=== PATIENT | female | born 1950 | race Caucasian/White ===

== ENCOUNTER 2019-02-06 17:15 | Observation (INO) | payer OTHER ==
[~2019-02-06] VITALS: Ht 162.6 cm; Wt 6.0 kg
[~2019-02-06 17:15] MED LIST: ALBU90OI6 INH; ALBU90OI61 INH; Aspirin EC81 MG PO; CARV6.25 PO; CLON1 PO; CORLANOR5 MG PO; FLUSAL2505 INH; FURO20 PO; Hydrocodone-Ap1 EA23 PO; LISI5 PO; Lisinopril2.5 MG PO; METPRE4DP PO; SERT100 PO; SPIR25 PO
[2019-02-06] MEDS ORDERED: LOSA25 PO (18:31)
[2019-02-06] MEDS ORDERED: LEVSOD50 PO (18:32)
[2019-02-06] MEDS ORDERED: ATOR20 PO (18:32)
[2019-02-06] MEDS ORDERED: SPIRIVA RESPIMAT4 GM INH (18:33)
[2019-02-06] MEDS ORDERED: BUDE6HFA INH (18:33)
[2019-02-06 19:29] LABS: BASOPHILS ABSOLUTE AUTO 0.03 K/mm3 (0.00-0.23); BASOPHILS PERCENT AUTO 0 % (0-2); EOSINOPHILS ABSOLUTE AUTO 0.04 K/mm3 (0.00-0.68); EOSINOPHILS PERCENT AUTO 1 % (0-6); Hematocrit 38.7 % (33.0-51.0); IMMATURE GRAN ABSOLUTE AUTO 0.04 K/mm3 (0.00-0.10); IMMATURE GRAN PERCENT AUTO 1 % (0-1); LYMPHOCYTES ABSOLUTE AUTO 0.99 K/mm3 (0.84-5.20); LYMPHOCYTES PERCENT AUTO 11 % (21-46); MONOCYTES PERCENT AUTO 6 % (4-13); Mean Corpuscular HGB 25.4 pg (26.0-34.0); Mean Corpuscular Volume 82 fL (80-100); NEUTROPHILS ABSOLUTE AUTO 7.08 K/mm3 (1.96-9.15); NEUTROPHILS PERCENT AUTO 82 % (41-73); RDW Coefficient Variation 14.3 % (11.7-14.2); RDW Standard Deviation 41.8 fL (35.1-46.3); Red Blood Cell Count 4.73 M/mm3 (3.80-5.20); White Blood Cell Count 8.68 K/mm3 (4.00-11.30)
[2019-02-06 19:30] LABS: Mean Platelet Volume 10.6 fL (9.1-12.4); Platelet Count 163 K/mm3 (150-400)
[2019-02-06 19:43] LABS: Alanine Aminotransfer (ALT/SGP 31 U/L (12-78); Albumin, Blood 3.6 g/dL (3.4-5.0); Albumin/Globulin Ratio 1.1 (0.8-1.8); Alk Phos 70 U/L (50-136); Anion Gap 4 mmol/L (6-16); Aspartate Aminotrans (AST/SGOT 28 U/L (12-37); Bilirubin, Total 0.4 mg/dL (0.1-1.0); Blood Urea Nitrogen 15 mg/dL (8-24); Bun/Creatinine Ratio 23.5 (12.0-20.0); CO2, Blood 30 mmol/L (21-32); Calcium, Blood 8.7 mg/dL (8.5-10.1); Chloride, Blood 102 mmol/L (98-108); Creatinine, Blood 0.64 mg/dL (0.40-1.00); Globulin, Blood 3.2 g/dL (2.2-4.0); Glomerular Filtration Rate >60 (60-); Glucose, Blood 135 mg/dL (70-99); Potassium, Blood 3.8 mmol/L (3.5-5.5); Sodium, Blood 136 mmol/L (136-145); Total Protein, Blood 6.8 g/dL (6.4-8.2)
--- NOTE | 2019-02-07 02:23 | NUR ---
ASSUMED CARE OF PATIENT AT APPROXIMATELY 2235 FROM ED GALILEO Pedersen PATIENT ARRIVES TO UNIT VIA STRETCHER; TRANSFER FROM ED TO PCU STRETCHER VIA SLIDE SHEET AND FOUR STAFF ASSIST D/T RIGHT LEG PAIN. PATIENT REPORTS PAIN IN RIGHT GROIN AND LEG UP TO 7/10; ACHE; REQUESTS PRN PAIN MEDICATION. PAIN DROPPED TO 4/10 WITHIN MINUTES AFTER IV PAIN MEDICATION. PATIENT REPORTS PAIN HAS NOT BEEN A ZERO SINCE FALL YESTERDAY. PATIENT DENIES TINGLING BUT REPORTS OCCASIONAL NUMBNESS IN FEET AFTER SHE HAD CHEMO FOR BREAST CX. PATIENT DENIES NAUSEA. SURGICAL NO TELE STATUS; OXYGEN SATURATION ABOVE 90% ON 2LPM VIA NC; REPORTS WEARS THIS OXYGEN AT BASELINE PRN WHEN AIR IS WET OR IF SHE FEELS SOB. ADMISSION COMPLETE; PIV S/L. ORTHO CONSULT CALLED IN; DR. RAMSEY TO SEE PATIENT IN AM; PER ER REPORT NO SURGICAL INTERVENTION; PAIN MANAGEMENT AND AMBULATION. PATIENT CURERNTLY SLEEPING IN BED; CALL LIGHT IN REACH; BED IN LOWEST POSISTION; WILL CONTINUE TO MONITOR AND ASSESS UNTIL END OF SHIFT.
[2019-02-07 04:23] LABS: Anion Gap 6 mmol/L (6-16); Blood Urea Nitrogen 13 mg/dL (8-24); CO2, Blood 30 mmol/L (21-32); Calcium, Blood 8.4 mg/dL (8.5-10.1); Chloride, Blood 102 mmol/L (98-108); Creatinine, Blood 0.77 mg/dL (0.40-1.00); Glomerular Filtration Rate >60 (60-); Glucose, Blood 109 mg/dL (70-99); Sodium, Blood 138 mmol/L (136-145)
--- NOTE | 2019-02-07 06:52 | NUR ---
PATIENT SLEPT ABOUT FIVE HOURS LAST NIGHT. NO ACUTE CHANGES TO REPORT. WILL CONTINUE TO MONITOR AND ASSESS UNTIL END OF SHIFT.
--- NOTE | 2019-02-07 09:05 | NUR ---
report rec'd from gay rn, who stayed over into day shift. gay rn to provide pain med per pt request. pt resting in bed. pt wants to discuss lovenox use with provider before consenting to injection. will also address pain med change to po for better coverage. cont to monitor.
--- NOTE | 2019-02-07 09:32 | NUR ---
PATIENT MEDICATED PER EMAR WITH IV PAIN MEDICATION; REPORTS PAIN WENT FROM 6 TO A 0; REFUSED LOVENOX THIS MORNING; PATIENT WANTS TO DISCUSS WITH DOCTOR THIS MORNING ALONG WITH PO PAIN MEDICATION; REPORTS UNSURE IF TYLENOL HELPED. VSS. PT WORKED WITH PATIENT; AMBULATED TO BED; UP IN CHAIR FOR MEALS; NO CHANGES FROM SHIFT ASSESSMENT. REPORT GIVEN TO DONALD Marie RN.
--- NOTE | 2019-02-07 17:51 | NUR ---
DC'D TO [facility]. WHEEL CHAIR TRANSPORT PROVIDED BY [employer]. REPORT CALLED TO JANNA GURROLA. PT WORKED VERY WELL WITH PT/OT, NEEDING MINIMAL AMOUNT OF PAIN MEDICATION. PT DC'D IN STABLE CONDITION.
[2019-02-08] MEDS ORDERED: ACET325 PO (09:52)
[2019-02-08] MEDS ORDERED: Senna Plus Tab1 EACH PO (09:53)
[2019-02-08] MEDS ORDERED: Hydrocodone-Ap1 EA23 PO (09:55)
[2019-02-08] MEDS ORDERED: ALBU3IS INH (09:56)
[2019-02-08] MEDS ORDERED: MIRALAX17 GM PO (09:57)
== END 2019-02-07 17:40 | disposition home or self-care (01) ==
LOC: ER 17:15 → PCU 17:16 → ER 21:20 → PCU 22:40
PROVIDERS: Emergency Medicine; Nurse Practitioner Acute Care; ADMIT Hospitalist
DX: S32.591A Other specified fracture of right pubis, initial encounter for closed fracture (principal); E03.9 Hypothyroidism, unspecified; I11.0 Hypertensive heart disease with heart failure; I50.22 Chronic systolic (congestive) heart failure; J44.9 Chronic obstructive pulmonary disease, unspecified; F32.9 Major depressive disorder, single episode, unspecified; K59.00 Constipation, unspecified; Z87.891 Personal history of nicotine dependence; Z79.01 Long term (current) use of anticoagulants; Z79.899 Other long term (current) drug therapy; W01.0XXA Fall on same level from slipping, tripping and stumbling without subsequent striking against object, initial encounter
CPT/HCPCS: 36415; 73502; 80048; 80053; 85025; 93005; 93010; 94640; 94760; 96374; 96376; 97162; 97166; 97530; 97535; 99285-25; G0378; J1650; J3010

== ENCOUNTER 2019-08-02 08:50 | Day surgery (SDC) | payer OTHER ==
[~2019-08-02] VITALS: Ht 162.6 cm; Wt 59.4 kg
[~2019-08-02 08:50] MED LIST changes: +ACET325 PO; +ALBU3IS INH; +ATOR20 PO; +BUDE6HFA INH; +LEVSOD50 PO; +LOSA25 PO; +MIRALAX17 GM PO; +OXYC5 PO; +SPIRIVA RESPIMAT4 GM INH; +Senna Plus Tab1 EACH PO
--- NOTE | 2019-08-02 11:07 | NUR ---
08/02/19 2480 Whit Arthur PT. WAS PLACED ON HER BACK FOR PART OF PROCEDURE.
== END 2019-08-02 11:42 | disposition home or self-care (01) ==
LOC: ORSCSDS 08:50
PROVIDERS: Surgery
PROC: 0DBK8ZX Excision of Ascending Colon, Via Natural or Artificial Opening Endoscopic, Diagnostic (ICD-10-PCS; principal; 2019-08-02 10:00)
DX: K62.5 Hemorrhage of anus and rectum (principal); D12.2 Benign neoplasm of ascending colon; Z86.010 Personal history of colon polyps; K64.2 Third degree hemorrhoids; I10 Essential (primary) hypertension; E03.9 Hypothyroidism, unspecified; J44.9 Chronic obstructive pulmonary disease, unspecified; F17.210 Nicotine dependence, cigarettes, uncomplicated; I25.10 Atherosclerotic heart disease of native coronary artery without angina pectoris; Z79.899 Other long term (current) drug therapy
CPT/HCPCS: 88305; J2250; J2704; J7120

== ENCOUNTER 2019-08-29 06:35 | Day surgery (SDC) | payer OTHER ==
[~2019-08-29] VITALS: Ht 162.6 cm; Wt 59.8 kg
--- NOTE | 2019-08-29 08:10 | NUR ---
Ambulatory in Day Surgery History, Chart, Medications and Allergies reviewed before start of procedure.LUNGS WITH EXPIRATORY WZ THROUGH OUT. PT STATES THAT SHE DID A DUO NEB AND HER 2 INHALERS THIS AM @ 0600. Patient confirms NPO status and agrees with scheduled surgery. Patient States Post-Procedure ride home has been arranged.
--- NOTE | 2019-08-29 08:20 | NUR ---
PT BELKOFSKI. SHE STATES THAT SHE THOUGHT THAT I WAS ASKING IF SHE TOOK HER ENEMA THIS AM. SHE DID NOT DO A DUO NEB AT 0600 THIS AM, BUT SHE DID USE BOTH OF HER INHALERS. DUO NEB GIVEN PER ORDERS.
--- NOTE | 2019-08-29 12:07 | NUR ---
Discharge instructions reviewed with patient. Patient verbalizes understanding. Copy given to patient to take home. Gauze given to patient to take home. Belongings gathered, with family. Discharged via wheelchair to private car for ride home.
== END 2019-08-29 23:16 | disposition home or self-care (01) ==
LOC: ORSCMMR 06:35 → ORD 07:30 → ORSCMMR 23:16
PROVIDERS: Surgery
PROC: 06BY0ZC Excision of Hemorrhoidal Plexus, Open Approach (ICD-10-PCS; principal; 2019-08-29 08:45)
DX: K64.8 Other hemorrhoids (principal); K64.4 Residual hemorrhoidal skin tags; K62.82 Dysplasia of anus; J44.9 Chronic obstructive pulmonary disease, unspecified; I10 Essential (primary) hypertension; E78.00 Pure hypercholesterolemia, unspecified; E03.9 Hypothyroidism, unspecified; F32.9 Major depressive disorder, single episode, unspecified; Z79.899 Other long term (current) drug therapy; Z87.891 Personal history of nicotine dependence
CPT/HCPCS: 88304; J0694; J1100; J1885; J2250; J2405; J2704; J2710; J3010; J7120

== ENCOUNTER 2020-01-25 09:49 | Inpatient (IN) | payer OTHER ==
[~2020-01-25] VITALS: Ht 162.6 cm; Wt 61.0 kg
[~2020-01-25 09:49] MED LIST changes: -ALBU3IS INH; +CARV3.125 PO; +Duoneb 2.5-0.5 M3 ML NEB
[2020-01-25 10:24] LABS: PCO2 Arterial 87.6 mmHg (35-45); PO2 Arterial 76.5 mmHg (80-100)
[2020-01-25 10:28] LABS: BASOPHILS ABSOLUTE AUTO 0.02 K/mm3 (0.00-0.23); BASOPHILS PERCENT AUTO 0 % (0-2); EOSINOPHILS ABSOLUTE AUTO 0.01 K/mm3 (0.00-0.68); EOSINOPHILS PERCENT AUTO 0 % (0-6); Hematocrit 47.7 % (33.0-51.0); Hemoglobin 13.9 g/dL (11.5-16.0); IMMATURE GRAN ABSOLUTE AUTO 0.07 K/mm3 (0.00-0.10); IMMATURE GRAN PERCENT AUTO 1 % (0-1); LYMPHOCYTES ABSOLUTE AUTO 0.95 K/mm3 (0.84-5.20); LYMPHOCYTES PERCENT AUTO 10 % (21-46); MONOCYTES ABSOLUTE AUTO 0.73 K/mm3 (0.16-1.47); MONOCYTES PERCENT AUTO 8 % (4-13); Mean Corpuscular HGB 25.3 pg (26.0-34.0); Mean Corpuscular HGB Conc 29.1 g/dL (31.5-36.5); Mean Corpuscular Volume 87 fL (80-100); Mean Platelet Volume 10.6 fL (9.1-12.4); NEUTROPHILS ABSOLUTE AUTO 7.41 K/mm3 (1.96-9.15); NEUTROPHILS PERCENT AUTO 81 % (41-73); Platelet Count 243 K/mm3 (150-400); RDW Coefficient Variation 13.6 % (11.7-14.2); RDW Standard Deviation 43.9 fL (35.1-46.3); Red Blood Cell Count 5.49 M/mm3 (3.80-5.20); White Blood Cell Count 9.19 K/mm3 (4.00-11.30)
[2020-01-25 10:51] LABS: Alanine Aminotransfer (ALT/SGP 30 U/L (12-78); Albumin, Blood 3.2 g/dL (3.4-5.0); Albumin/Globulin Ratio 0.7 (0.8-1.8); Alk Phos 68 U/L (50-136); Anion Gap 5 mmol/L (6-16); Aspartate Aminotrans (AST/SGOT 37 U/L (12-37); Bilirubin, Total 0.5 mg/dL (0.1-1.0); Blood Urea Nitrogen 18 mg/dL (8-24); Bun/Creatinine Ratio 26.4 (12.0-20.0); CO2, Blood 30 mmol/L (21-32); Calcium, Blood 9.2 mg/dL (8.5-10.1); Chloride, Blood 99 mmol/L (98-108); Creatinine, Blood 0.68 mg/dL (0.40-1.00); Globulin, Blood 4.5 g/dL (2.2-4.0); Glomerular Filtration Rate >60 (60-); Glucose, Blood 227 mg/dL (70-99); Potassium, Blood 4.4 mmol/L (3.5-5.5); Sodium, Blood 134 mmol/L (136-145); Total Protein, Blood 7.7 g/dL (6.4-8.2)
[2020-01-25 11:56] LABS: Troponin I 0.478 ng/mL (0.000-0.040)
[2020-01-25] MEDS ORDERED: ROSU10TA PO (12:19)
[2020-01-25] MEDS ORDERED: CITA20 PO (12:20)
[2020-01-25 15:26] LABS: PCO2 Arterial 65.2 mmHg (35-45); PO2 Arterial 63.4 mmHg (80-100); pH Blood Arterial 7.35 (7.35-7.45)
[2020-01-25 16:08] LABS: Source, Urine Catheter
[2020-01-25 16:11] LABS: Appearance, Urine Clear (Clear); Bilirubin, Urine Neg (Neg); Blood, Urine Neg (Neg); Color, Urine Yellow (P-Yellow); Glucose Qualitative, Urine Neg (Neg); Ketones, Urine Neg (Neg); Leukocyte Esterase, Urine Neg (Neg); Nitrite, Urine Neg (Neg); Protein, Urine Neg (Neg); Urobilinogen, Urine NORM (Normal)
[2020-01-25 17:40] LABS: Adenovirus Not Detected (NOT DETECT); Bordetella pertussis Not Detected (NOT DETECT); Chlamydophila pneumoniae Not Detected (NOT DETECT); Coronavirus 229E Not Detected (NOT DETECT); Coronavirus HKU1 Not Detected (NOT DETECT); Coronavirus NL63 Not Detected (NOT DETECT); Coronavirus OC43 Not Detected (NOT DETECT); Human Metapneumovirus Detected (NOT DETECT); Human Rhinovirus/Enterovirus Not Detected (NOT DETECT); Influenza A Not Detected (NOT DETECT); Influenza A/2009-H1 Not Detected (NOT DETECT); Influenza A/H1 Not Detected (NOT DETECT); Influenza A/H3 Not Detected (NOT DETECT); Influenza B Not Detected (NOT DETECT); Mycoplasma pneumoniae Not Detected (NOT DETECT); Parainfluenza Virus 1 Not Detected (NOT DETECT); Parainfluenza Virus 2 Not Detected (NOT DETECT); Parainfluenza Virus 3 Not Detected (NOT DETECT); Parainfluenza Virus 4 Not Detected (NOT DETECT); Respiratory Syncytial Virus Not Detected (NOT DETECT)
--- NOTE | 2020-01-25 18:37 | NUR ---
PT WITH BP 86/55, HR 88; REPEAT READING WAS 83/57, HR 80. PT SLEEPING, BUT AROUSES TO SPEECH AND IS ORIENTED UPON AWAKENING. NOTIFIED DR. PRADO TO SEE IF SHE WANTED IVF SINCE PT NPO. SINCE PT IS BEING DIURESED AND MAP = 65, NO NEW ORDERS AT THIS TIME, BUT PLACED ORDER TO NOTIFY PROVIDER IF MAP < 65.
--- NOTE | 2020-01-25 18:51 | NUR ---
SHIFT SUMMARY: ASSUMED CARE OF PT UPON HER ARRIVAL FROM ED AT 1440. AROUSES TO SPEECH, IS ORIENTED. ABLE TO TURN SELF IN BED. LUNG SOUNDS QUITE DIMINISHED THROUGHOUT, TIGHT, POOR AIR MOVEMENT. ON BIPAP 14/8, 35% FIO2, SATS 92-94%, TOLERATING. IS V PACED, OCCASIONAL PVC'S. DENIES PAIN. FARR DRAINING CLEAR YELLOW URINE, UA DID NOT INDICATE NEED FOR CULTURE. RESP PANEL PCR + FOR METAPNEUMOVIRUS. PLAN IS FOR NEBULIZERS AND STEROIDS. PALLIATIVE CARE CONSULT PENDING, WILL WAIT UNTIL SPOUSE IS PRESENT.
--- NOTE | 2020-01-25 20:00 | NUR ---
ASSUMPTION OF CARE: PT AWAKENS TO VERBAL STIMULI AND IS ABLE TO ANSWER QUESTIONS. HR IS IN THE 80S. SBP IN THE 100S. V PACED AND IS HAVING OCC PVCS. LUNG SOUNDS ARE WHEEZY/COARSE AND DIM IN BASES. ON BIPAP. SETTINGS 14/8/35%. SPO2 >90%. PT HAS FARR IN PLACE DRAINING TO GRAVITY. 18G IN RAC; 20G IN R HAND. BOTH PATENT AND SL. WILL CONTINUE TO MONITOR
[2020-01-25] MEDS ORDERED: INCRUSE ELLI62.5 MCG INH (23:49)
[2020-01-25] MEDS ORDERED: PULMICORT0.5 MG/2 M NEB (23:50)
--- NOTE | 2020-01-25 23:52 | NUR ---
PT WHEEZY AND TIGHT. COUGHING. STATES SHE FEELS LIKE SHE NEEDS A BREATHING TX. RT AT BEDSIDE. FIO2 UP TO 40%
[2020-01-26 04:20] LABS: BASOPHILS ABSOLUTE AUTO 0.01 K/mm3 (0.00-0.23); BASOPHILS PERCENT AUTO 0 % (0-2); EOSINOPHILS PERCENT AUTO 0 % (0-6); Hematocrit 42.7 % (33.0-51.0); Hemoglobin 12.7 g/dL (11.5-16.0); Mean Corpuscular HGB 25.5 pg (26.0-34.0); Mean Corpuscular HGB Conc 29.7 g/dL (31.5-36.5); Mean Corpuscular Volume 86 fL (80-100); Mean Platelet Volume 10.4 fL (9.1-12.4); Platelet Count 164 K/mm3 (150-400); RDW Coefficient Variation 13.6 % (11.7-14.2); RDW Standard Deviation 42.8 fL (35.1-46.3); Red Blood Cell Count 4.99 M/mm3 (3.80-5.20); White Blood Cell Count 4.37 K/mm3 (4.00-11.30)
[2020-01-26 04:25] LABS: IMMATURE GRAN ABSOLUTE AUTO 0.02 K/mm3 (0.00-0.10); IMMATURE GRAN PERCENT AUTO 1 % (0-1); LYMPHOCYTES PERCENT AUTO 18 % (21-46); MONOCYTES ABSOLUTE AUTO 0.24 K/mm3 (0.16-1.47); MONOCYTES PERCENT AUTO 6 % (4-13); NEUTROPHILS PERCENT AUTO 76 % (41-73)
[2020-01-26 04:39] LABS: Alanine Aminotransfer (ALT/SGP 26 U/L (12-78); Albumin, Blood 2.9 g/dL (3.4-5.0); Albumin/Globulin Ratio 0.7 (0.8-1.8); Alk Phos 36 U/L (50-136); Anion Gap 4 mmol/L (6-16); Aspartate Aminotrans (AST/SGOT 28 U/L (12-37); Bilirubin, Total 0.3 mg/dL (0.1-1.0); Blood Urea Nitrogen 30 mg/dL (8-24); Bun/Creatinine Ratio 34.9 (12.0-20.0); CO2, Blood 36 mmol/L (21-32); Calcium, Blood 9.2 mg/dL (8.5-10.1); Chloride, Blood 100 mmol/L (98-108); Creatinine, Blood 0.86 mg/dL (0.40-1.00); Globulin, Blood 3.9 g/dL (2.2-4.0); Glomerular Filtration Rate >60 (60-); Glucose, Blood 145 mg/dL (70-99); Potassium, Blood 4.5 mmol/L (3.5-5.5); Sodium, Blood 140 mmol/L (136-145); Total Protein, Blood 6.8 g/dL (6.4-8.2)
--- NOTE | 2020-01-26 05:39 | NUR ---
PT ABLE TO TOLERATE SMALL BREAKS OFF BIPAP. SHE WAS ABLE TO TAKE PO MEDICATIONS, WASH FACE, AND SWAB OWN MOUTH PRIOR TO DE SAT <90%. ONCE BIPAP WAS PLACED BACK ON SHE RECOVERED QUICKLY WITH SPO2 >90%.
--- NOTE | 2020-01-26 05:50 | NUR ---
SHIFT SUMMARY: NO ACUTE CHANGES T/O SHIFT. PT SLEPT MOST OF NIGHT. WAS ABLE TO TOLERATE SHORT BREAKS OFF BIPAP. SETTINGS REMAIN 18/4/40%. PT IS ABLE TO REPOSITION SELF WHEN NECESSARY. RAC AND R HAND IVS PATENT AND SL. PT IS DUAL PACED AND CONTINUED TO THROW OCC PVCS THROUGHOUT THE NIGHT. FARR IN PLACE DRAINING SMALL AMOUNTS OF YELLOW URINE. SKIN REMAINS C/D/I. CALL LIGHT IN REACH. WILL PASS REPORT TO ONCOMING RN
--- NOTE | 2020-01-26 09:00 | NUR ---
pt laying in bed on bipap, spouce in room, she is awake, denies complaints, states she is feeling some better, is a home o2 user at 2 liters, RT in room will give a break and place on 4 liters per RT, she is tolerating well, gave po meds, she swallows without diff, lungs are dim, tight and occ wheezing, resp even and mildly labored, no cough noted, hrr, monitor shows paced rhythm, no edema noted, ppp+2, cap refill <3sec, vs stable, afebrile, iv sites are clear and patent, btx4, abd flat soft nontender, voids via lombardo draining clear yellow urine, skin c/w/d, emiliana dominguez, call light in reach.
--- NOTE | 2020-01-26 12:28 | NUR ---
pt resting in bed, lots of family in room, wanted to come off bipap again, but RT would like her to stay on for a while due to her work of breathing. she is doing ok, call light in reach.
--- NOTE | 2020-01-26 14:29 | NUR ---
PT OFF BIPAP FOR A BREAK, REPOSITIONED HER IN BED. SHE IS USING HER TABLET, DR. STARK IN TO SEE HER, SHE SAID SHE CAN BE CHANGED TO PCU WITH TELE. PT CALL LIGHT IN REACH.
--- NOTE | 2020-01-26 18:28 | NUR ---
pt has had an uneventful day, she has been on and off bipap, states she feels good and has no complaints. wants a breathing tx when she is finished eating and will put her back on bipap at that time. is maintaining 90-94% on 4 liters, no further changes this shift, call light in reach.
--- NOTE | 2020-01-26 20:14 | NUR ---
PT RESTING QUIETLY AT THIS TIME, STATES THAT SHE IS READY FOR BIPAP TO BE PLACED AND TO GO TO SLEEP ALTHOUGH SHE DOES INQUIRE REGARDING ANXIETY MEDICATION. HS LIPITOR AND ATIVAN ADMIN, RT AT BEDSIDE FOR UDN. PT IS SPEAKING IN FULL SENTENCES, MILD INCREASED WORK OF BREATHING IS NOTED WITH INCREASE IN ACTIVITY, PT IS ABLE TO SIT UP AWAY FROM BED WITH MINIMAL ASSIST AND MAINTAINS SATURATIONS AT THIS TIME, RESP RATE HIGH TEENS LOW 20S, SATS ARE LOW 90S, LUNGS DIM THROUGHOUT, LITTLE AIR MOVEMENT AUSCULTATED MID TO LOWER BILAT. HRR, PACED RHYTHM NOTED ON MONITOR, RATE 80-90S AT THIS TIME, SKIN IS PWD, NO EDEMA IS NOTED, PRESSURE IS MAINTAINING. BOWEL TONES PRESENT X 4, ABD SOFT, NO GRIMACING IS NOTED WITH PALPATION, PT DENIES TENDERNESS. PT DENIES PAIN, DENIES NUMBNESS/TINGLING, DENIES CP/PRESSURE, BREATHING IS FEELING OK AT THIS TIME, SHE IS HOPEFUL FOR A GOOD NIGHTS SLEEP TONIGHT. FARR CATH REMAINS IN PLACE DRAINING CLEAR YELLOW URINE TO GRAVITY, CATH CARE DONE AT THIS TIME.
--- NOTE | 2020-01-27 06:52 | NUR ---
PT REQUESTS TO BE PLACED ON BIPAP FOR SLEEP AT BEDSIDE REPORT LAST NOC, TOLERATES BIPAP WELL ALL NIGHT WITH ONLY BRIEF BREAKS FOR MEDS, SHE REPORTS THAT SHE SLEPT WELL. IS NOTED TO TURN SELF THROUGHOUT NOC INTERMITTENTLY REQUESTS ASSISTANCE WITH PILLOW PLACEMENT FOR COMFORT. LUNGS REMAIN DIM MID TO BASES BILAT, INCREASED WORK OF BREATHING IS NOTED WITH LARGE POSITION CHANGES, SATS MAINTAIN WITH BIPAP SETTINGS 14/8, FIO2 35%. CONTINUES IN PACED RHYTHM, PRESSURES MAINTAINING. NO ACUTE CHANGES THIS SHIFT.
--- NOTE | 2020-01-27 09:17 | NUR ---
CARE ASSUMED REPORT RECEIVED, CARE ASSUMED AT 0700 FROM GALILEO CANELA. PT ON BIPAP, REQUESTING TO BE PLACED ON NASAL CANNULA. PT TOLERATED FOR APPROX 1 HOUR, THEN CALLED STAFF COMPLAINING OF ANXIETY. PT PLACED BACK ON BIPAP BY GRADING SUPERVISORRESHMA. SINCE THEN, PT RESTING QUIETLY. VITALS STABLE.
--- NOTE | 2020-01-27 14:00 | NUR ---
SUMMARY PT CAME OFF OF BIPAP APPROXIMATELY 0930 FOR BREAKFAST AND HAS BEEN ON 4 LPM NASAL CANNULA SINCE THEN AND TOLERATED WELL. RR ELEVATED WHEN PT TALKS, EATS OR DRINKS BUT 02 SAT STABLE AND PT REPORTS FEELING LIKE HER BREATHING IS BETTER TODAY THAN YESTERDAY. BP/HR STABLE. PT AFEBRILE. PT'S IN AND OUT THROUGHOUT THE DAY, INVOLVED IN CARE. PT CALLING APPROPRIATELY FOR NEEDS. REPOSITIONING SELF FREQUENTLY IN BED. GOOD URINE OUTPUT FROM FARR.
--- NOTE | 2020-01-27 14:14 | NUR ---
TRANSFER NOTIFIED THAT PCU BED AVAILABLE. PT TO BE TRANSFERRED TO PCU 6. REPORT GIVEN TO GALILEO BRUNO TO ASSUME CARE. CHAD SANTOYO TO BEDSIDE TO TRANSFER PATIENT TO PCU.
--- NOTE | 2020-01-27 17:36 | NUR ---
SHIFT SUMMARY ICU TRANSFER THIS AFTERNOON. PATIENT SETTLED INTO ROOM. PATIENT DENIES PAIN, NAUSEA, AND SHORTNESS OF BREATH. PATIENT STATES SHE IS TOO SHORT OF BREATH TO GET OUT OF BED. FARR PATENT AND DRAINING. PATIENT MAINTAINING 02 SATURATION ABOVE 90% ON 3.5L NC AND USES BIPAP FOR SLEEPING. CALL LIGHT IN REACH.
--- NOTE | 2020-01-27 19:10 | NUR ---
RECEIVED REPORT FROM GALILEO BRUNO. ASSUMED CARE OF PT. IN NO ACUTE DISTRESS AT THIS TIME, SITTING UP IN BED COMFORTABLY. O2 SATS STABLE AT THIS TIME. PT DENIES ANY NEEDS, CALL LIGHT AND POSSESSIONS IN REACH, WILL CONTINUE TO MONITOR.
[2020-01-27] MEDS ORDERED: CLON.5 PO (19:30)
--- NOTE | 2020-01-28 06:33 | NUR ---
SHIFT SUMMARY: PT RESTING COMFORTABLY AT THIS TIME, IN NO ACUTE DISTRESS. WAS MONITORED EVERY 1-2 HOURS WITH NEEDS MET. BIPAP IN PLACE T/O NIGHT, STATED SHE WANTED TO SWITCH TO THE NASAL CANNULA THIS AM, TOLERATING WELL AT THIS TIME, O2 SATS >92%. VS STABLE. DENIES ANY OTHER NEEDS AT THIS TIME. CALL LIGHT AND POSSESSIONS IN REACH, BED IN LOW POSITION WITH BED ALARM ACTIVATED.
--- NOTE | 2020-01-28 16:30 | NUR ---
PT TRANSFERRED TO ROOM 310. PT IS A&O X4, VSS, RESP UNLABORED, 4L VIA NC, IV TODD. CHIKA D/C WNL PRIOR TO TRANSFER. PT HAS BEEN OOB FOR MEALS TODAY & USING THE BSC INSTEAD OF THE BEDPAN, O2 SATS HAVE REMAINED ABOVE 90% DURING ACTIVITY. REPORT GIVEN TO MARQUITA GURROLA. PT'S IS WITH HER AT THIS TIME. PT/OT CONSULT WAS ORDERED. PT ESCORTED VIA W/C BY MICHAEL
--- NOTE | 2020-01-28 17:00 | NUR ---
PT TRANSFERRED TO ROOM 310 FROM PCU VIA W/C. SBA TO BED, ORIENTED TO ROOM AND CALL SYSTEM, CALL STODDARD AND PHONE IN REACH. SHE DENIES PAIN, WANTS OR NEEDS AT THIS TIME. WILL CONTINUE TO MONITOR.
[2020-01-29 05:18] LABS: Anion Gap 0 mmol/L (6-16); Blood Urea Nitrogen 42 mg/dL (8-24); Bun/Creatinine Ratio 57.4 (12.0-20.0); CO2, Blood 40 mmol/L (21-32); Calcium, Blood 9.1 mg/dL (8.5-10.1); Chloride, Blood 101 mmol/L (98-108); Creatinine, Blood 0.73 mg/dL (0.40-1.00); Glomerular Filtration Rate >60 (60-); Glucose, Blood 145 mg/dL (70-99); Potassium, Blood 4.6 mmol/L (3.5-5.5); Sodium, Blood 141 mmol/L (136-145)
--- NOTE | 2020-01-29 06:52 | NUR ---
SUMMARY: A/OX4, CALLS APPROPRIATELY AND COOPERATIVE W/CARE. SHE'S SBA TO BSC AND VOIDED W/O DIFFICULTY POST FARR REMOVAL ON DAY SHIFT. PT TOLERATED 2L O2 VIA NC W/SPO2 WNL ON CONT BIOX T/O MOST OF NOCTE. SHE CONT'S TO SOB W/EXERTION AND DESATS MOMENTARILY BUT RECOVERS QUICKLYS. O2 WAS TITRATED BTWN 2L-4L T/O NOCTE TO MAINTAIN SATS. BIPAP PRN WASN'T REQUIRED. IV STEROIDS RECIEVED. LS BEGAN WHEEZY BUT CLEARED AFTER RT BX TX'S. ATIVAN PROVIDED PRN PER PT REQUEST AND PT SLEPT MAJORITY OF NOCTE. NO ACUTE CHANGES, VSS/AFEBRILE. WCTM AND REPORT TO DAY RN.
--- NOTE | 2020-01-29 15:12 | NUR ---
Pt gave me permission to provide care for the morning of 01/30/2020
--- NOTE | 2020-01-29 22:42 | NUR ---
PATIENT BACK TO SLEEP AFTER ASSESSMENT. DENIES PAIN AND N/V. ON 3L O2 NC. CALL LIGHT IN REACH.
--- NOTE | 2020-01-30 | NUR ---
RT IN FOR BREATHING TX PER PATIENT REQUEST.
--- NOTE | 2020-01-30 02:43 | NUR ---
PATIENT DESTATS TO 82% WHEN UP TO BSC WITH ASSIST AND BACK TO 92 % WHEN RECOVERED AND RESTED ON 3L O2 NC.
--- NOTE | 2020-01-30 04:21 | NUR ---
SHIFT SUMMARY PATIENT DESTATED TO 82% WHEN UP TO BSC AND BACK TO 92% AT REST ON 3L O2 NC. AXOX 3 AND SBA. PIV REMAINS INTACT. RT IN FOR BREATHING TX. IV SOLU-MEDROL GIVEN PER EMAR. ON CONTINUOUS PULSE OXIMETRY STATING 92%. DENIES PAIN AND N/V. SOB W/EXERTION. COOPERATIVE WITH CARE. CALL LIGHT IN REACH. BED IN LOWEST POSITION. WILL CONTINUE TO MONITOR UNTIL DAY SHIFT NURSE ASSUMES CARE.
[2020-01-30] MEDS ORDERED: PRED20 PO (10:45)
[2020-01-30] MEDS ORDERED: AMLO5 PO (10:45)
--- NOTE | 2020-01-30 12:30 | NUR ---
DISCHARGE NOTE PT DISCHARGED TO HOME WITH HOME HEALTH. DISCHARGE PLANNING ACTIVE IN DISCHARGE. PT HAD HOME O2 EVALUATION PRIOR TO DISCHARGE. PT O2 NEEDS UP TO 3L WHEN AT REST AND 5L AT HOME. PT'S IN ROOM THROUGHOUT THIS SHIFT. PT STANDBY ASSIST TO BATHROOM THIS SHIFT. PT UP TO WHEELCHAIR INDEPENDENTLY PRIOR TO DISCHARGE. IV'S REMOVED PRIOR TO DISCHARGE. PT AND GIVEN DISCHARGE INSTRUCTIONS. PT TO VEHICLE WITH MICHAEL MONTE.
== END 2020-01-30 12:09 | disposition home health service (06) | DRG 189 ==
LOC: ER 09:49 → ICUW 12:48 → PCU 01-27 14:18 → MEDS 01-28 17:01 → ENPENDDIS 01-30 11:00 → MEDS 01-30 12:09
PROVIDERS: Internal Medicine; Nurse Practitioner Acute Care; Physician Assistant; ADMIT Internal Medicine
PROC: 5A09357 Assistance with Respiratory Ventilation, Less than 24 Consecutive Hours, Continuous Positive Airway Pressure (ICD-10-PCS; principal; 2020-01-25)
DX: J96.21 Acute and chronic respiratory failure with hypoxia (principal); E43 Unspecified severe protein-calorie malnutrition; G92 Toxic encephalopathy; J44.1 Chronic obstructive pulmonary disease with (acute) exacerbation; I50.42 Chronic combined systolic (congestive) and diastolic (congestive) heart failure; I13.0 Hypertensive heart and chronic kidney disease with heart failure and stage 1 through stage 4 chronic kidney disease, or unspecified chronic kidney disease; N17.9 Acute kidney failure, unspecified; B97.81 Human metapneumovirus as the cause of diseases classified elsewhere; J96.22 Acute and chronic respiratory failure with hypercapnia; N18.3 Chronic kidney disease, stage 3 (moderate); E03.9 Hypothyroidism, unspecified; E78.5 Hyperlipidemia, unspecified; F41.1 Generalized anxiety disorder; Z68.25 Body mass index [BMI] 25.0-25.9, adult; Z87.891 Personal history of nicotine dependence; Z95.810 Presence of automatic (implantable) cardiac defibrillator
CPT/HCPCS: 0099U; 36415; 36600; 51702; 71045; 80048; 80053; 81003; 82803; 83880; 84484; 85025; 93005; 93010; 94640; 94644; 94660; 94761; 94762; 96372-59; 96374-59; 96375-59; 97110; 97116; 97162; 97165; 99285-25; A9270-GY; J0456; J1650; J1940; J2060; J2765; J2920; J2930; J7050

== ENCOUNTER 2020-02-08 11:58 | Inpatient (IN) | payer OTHER ==
[~2020-02-08] VITALS: Ht 162.6 cm; Wt 55.0 kg
[~2020-02-08 11:58] MED LIST changes: +AMLO5 PO; -BUDE6HFA INH; -CARV3.125 PO; -CORLANOR5 MG PO; -Duoneb 2.5-0.5 M3 ML NEB; -FURO20 PO; -LEVSOD50 PO; +PRED20 PO; +PULMICORT0.5 MG/2 M NEB; -SPIRIVA RESPIMAT4 GM INH
[2020-02-08 13:22] LABS: BASOPHILS ABSOLUTE AUTO 0.02 K/mm3 (0.00-0.23); BASOPHILS PERCENT AUTO 0 % (0-2); EOSINOPHILS ABSOLUTE AUTO 0.03 K/mm3 (0.00-0.68); EOSINOPHILS PERCENT AUTO 0 % (0-6); Hematocrit 42.1 % (33.0-51.0); Hemoglobin 12.8 g/dL (11.5-16.0); IMMATURE GRAN PERCENT AUTO 1 % (0-1); LYMPHOCYTES ABSOLUTE AUTO 1.13 K/mm3 (0.84-5.20); LYMPHOCYTES PERCENT AUTO 7 % (21-46); MONOCYTES ABSOLUTE AUTO 1.17 K/mm3 (0.16-1.47); MONOCYTES PERCENT AUTO 7 % (4-13); Mean Corpuscular HGB 25.5 pg (26.0-34.0); Mean Corpuscular HGB Conc 30.4 g/dL (31.5-36.5); Mean Corpuscular Volume 84 fL (80-100); Mean Platelet Volume 10.9 fL (9.1-12.4); NEUTROPHILS ABSOLUTE AUTO 14.51 K/mm3 (1.96-9.15); NEUTROPHILS PERCENT AUTO 86 % (41-73); Platelet Count 305 K/mm3 (150-400); RDW Coefficient Variation 13.5 % (11.7-14.2); RDW Standard Deviation 41.5 fL (35.1-46.3); Red Blood Cell Count 5.02 M/mm3 (3.80-5.20); White Blood Cell Count 16.96 K/mm3 (4.00-11.30)
[2020-02-08 13:36] LABS: Alanine Aminotransfer (ALT/SGP 26 U/L (12-78); Albumin, Blood 2.2 g/dL (3.4-5.0); Albumin/Globulin Ratio 0.5 (0.8-1.8); Alk Phos 58 U/L (50-136); Anion Gap 6 mmol/L (6-16); Aspartate Aminotrans (AST/SGOT 23 U/L (12-37); Bilirubin, Total 0.9 mg/dL (0.1-1.0); Blood Urea Nitrogen 15 mg/dL (8-24); Bun/Creatinine Ratio 18.3 (12.0-20.0); CO2, Blood 35 mmol/L (21-32); Calcium, Blood 8.5 mg/dL (8.5-10.1); Chloride, Blood 95 mmol/L (98-108); Creatinine, Blood 0.82 mg/dL (0.40-1.00); Globulin, Blood 4.2 g/dL (2.2-4.0); Glomerular Filtration Rate >60 (60-); Glucose, Blood 142 mg/dL (70-99); Potassium, Blood 3.5 mmol/L (3.5-5.5); Sodium, Blood 136 mmol/L (136-145); Total Protein, Blood 6.4 g/dL (6.4-8.2)
[2020-02-08] MEDS ORDERED: CARV3.125 PO (14:59)
[2020-02-08] MEDS ORDERED: FURO20 PO (14:59)
[2020-02-08] MEDS ORDERED: SPIRIVA RESPIMAT4 GM INH (15:00)
[2020-02-08] MEDS ORDERED: BUDE6HFA INH (15:00)
[2020-02-08] MEDS ORDERED: LEVSOD50 PO (15:00)
[2020-02-08] MEDS ORDERED: CORLANOR5 MG PO (15:00)
[2020-02-08] MEDS ORDERED: Duoneb 2.5-0.5 M3 ML NEB (15:01)
[2020-02-08] MEDS ORDERED: ROSU10TA PO (15:01)
[2020-02-08] MEDS ORDERED: CITA20 PO (15:02)
[2020-02-08] MEDS ORDERED: INCRUSE ELLI62.5 MCG INH (15:03)
[2020-02-08] MEDS ORDERED: CLON.5 PO (15:03)
[2020-02-08] MEDS ORDERED: Aspir 8181 MG PO (15:05)
[2020-02-08] MEDS ORDERED: Budesonide0.5 MG/2 M NEB (15:07)
[2020-02-08 18:20] LABS: Bicarbonate Venous 31.8 mmol/L (24.0-30.0); PCO2 Venous 72.4 mmHg (38-42); PO2 Venous 25.8 mmHg (38-42); pH Blood Venous 7.33 (7.34-7.37)
[2020-02-08 19:17] LABS: Test Name COVID-19
--- NOTE | 2020-02-08 20:15 | NUR ---
Assumed Care Assumed care of pt at approx 1910 from GALILEO Schumacher. Pt presents lying in bed, calm and cooperative with care. Pt is R/O COVID-19; all send out lab items collected by day RN. Awaiting sputum sample and UA to be collected. Pt is alert and oriented, VSS, see admission assessment for detailed systems assessment. [place] is [place] [facility] uses a walker at home for distance ambulation. No acute concerns to note at start of shift. IV fluids infusing at 75 mls/hr per orders. Will continue to monitor.
[2020-02-08 21:14] LABS: Adenovirus Not Detected (NOT DETECT); Bordetella pertussis Not Detected (NOT DETECT); Chlamydophila pneumoniae Not Detected (NOT DETECT); Coronavirus 229E Not Detected (NOT DETECT); Coronavirus HKU1 Not Detected (NOT DETECT); Coronavirus NL63 Not Detected (NOT DETECT); Coronavirus OC43 Not Detected (NOT DETECT); Human Metapneumovirus Detected (NOT DETECT); Human Rhinovirus/Enterovirus Not Detected (NOT DETECT); Influenza A/2009-H1 Not Detected (NOT DETECT); Influenza A/H1 Not Detected (NOT DETECT); Influenza A/H3 Not Detected (NOT DETECT); Influenza B Not Detected (NOT DETECT); Mycoplasma pneumoniae Not Detected (NOT DETECT); Parainfluenza Virus 1 Not Detected (NOT DETECT); Parainfluenza Virus 2 Not Detected (NOT DETECT); Parainfluenza Virus 3 Not Detected (NOT DETECT); Parainfluenza Virus 4 Not Detected (NOT DETECT); Respiratory Syncytial Virus Not Detected (NOT DETECT)
[2020-02-09 04:27] LABS: BASOPHILS ABSOLUTE AUTO 0.02 K/mm3 (0.00-0.23); BASOPHILS PERCENT AUTO 0 % (0-2); EOSINOPHILS ABSOLUTE AUTO 0.05 K/mm3 (0.00-0.68); EOSINOPHILS PERCENT AUTO 1 % (0-6); Hematocrit 36.3 % (33.0-51.0); Hemoglobin 10.9 g/dL (11.5-16.0); IMMATURE GRAN ABSOLUTE AUTO 0.04 K/mm3 (0.00-0.10); IMMATURE GRAN PERCENT AUTO 0 % (0-1); LYMPHOCYTES PERCENT AUTO 16 % (21-46); MONOCYTES ABSOLUTE AUTO 0.87 K/mm3 (0.16-1.47); MONOCYTES PERCENT AUTO 9 % (4-13); Mean Corpuscular HGB 25.3 pg (26.0-34.0); Mean Corpuscular Volume 84 fL (80-100); Mean Platelet Volume 10.4 fL (9.1-12.4); NEUTROPHILS ABSOLUTE AUTO 6.77 K/mm3 (1.96-9.15); NEUTROPHILS PERCENT AUTO 73 % (41-73); Platelet Count 227 K/mm3 (150-400); RDW Coefficient Variation 13.7 % (11.7-14.2); RDW Standard Deviation 42.3 fL (35.1-46.3); White Blood Cell Count 9.25 K/mm3 (4.00-11.30)
[2020-02-09 04:49] LABS: Alanine Aminotransfer (ALT/SGP 22 U/L (12-78); Albumin, Blood 1.9 g/dL (3.4-5.0); Albumin/Globulin Ratio 0.5 (0.8-1.8); Alk Phos 48 U/L (50-136); Anion Gap 2 mmol/L (6-16); Aspartate Aminotrans (AST/SGOT 10 U/L (12-37); Bilirubin, Total 0.4 mg/dL (0.1-1.0); Blood Urea Nitrogen 14 mg/dL (8-24); Bun/Creatinine Ratio 16.9 (12.0-20.0); CO2, Blood 36 mmol/L (21-32); Calcium, Blood 8.2 mg/dL (8.5-10.1); Chloride, Blood 102 mmol/L (98-108); Creatinine, Blood 0.83 mg/dL (0.40-1.00); Globulin, Blood 3.6 g/dL (2.2-4.0); Glomerular Filtration Rate >60 (60-); Glucose, Blood 96 mg/dL (70-99); Potassium, Blood 3.4 mmol/L (3.5-5.5); Sodium, Blood 140 mmol/L (136-145); Total Protein, Blood 5.5 g/dL (6.4-8.2)
--- NOTE | 2020-02-09 05:28 | NUR ---
Shift Summary Pt with no acute events overnight. Denies increased SOB or difficulty breathing. VSS. Up to BSC x2 this shift. UA collected and sent, sputum sample collected and sent to lab. Pt remains alert and oriented. No acute changes from initial shift assessment. IV fluid infusing at 75mls/hr per orders. Will continue to monitor and provide care per orders until day RN assumes care.
[2020-02-09 07:31] LABS: Source, Urine Catheter
[2020-02-09 07:48] LABS: Bilirubin, Urine Neg (Neg); Blood, Urine Neg (Neg); Glucose Qualitative, Urine Neg (Neg); Ketones, Urine Neg (Neg); Leukocyte Esterase, Urine Neg (Neg); Nitrite, Urine Neg (Neg); Protein, Urine Neg (Neg); Urobilinogen, Urine NORM (Normal); pH, Urine 6.5 (5.0-8.0)
[2020-02-09 07:54] LABS: Appearance, Urine Clear (Clear); Color, Urine Yellow (P-Yellow)
--- NOTE | 2020-02-09 20:00 | NUR ---
ASSUMED CARE BEDSIDE REPORT RECIEVED. PT IS AWAKE, ALERT, AND ORIENTED. PT FOLLOWS COMMANDS APPROPRIATELY. PT ON 2L O2 NC. VITAL SIGNS STABLE. PT WITH MOIST PRODUCTIVE COUGH. PT REMAINS IN ISO FOR RULE OUT COVID 19, LABS PENDING. PT DENIES DISCOMFORT OR SOB. PT REPOSITIONS SELF IN BED INDEPENDENTLY. NO FAMILY AT BEDSIDE. IV SALINE LOCKED. WILL CONTINUE TO MONITOR.
[2020-02-10 05:44] LABS: BASOPHILS ABSOLUTE AUTO 0.01 K/mm3 (0.00-0.23); BASOPHILS PERCENT AUTO 0 % (0-2); EOSINOPHILS ABSOLUTE AUTO 0.05 K/mm3 (0.00-0.68); EOSINOPHILS PERCENT AUTO 1 % (0-6); Hematocrit 36.4 % (33.0-51.0); IMMATURE GRAN ABSOLUTE AUTO 0.03 K/mm3 (0.00-0.10); IMMATURE GRAN PERCENT AUTO 1 % (0-1); LYMPHOCYTES ABSOLUTE AUTO 1.22 K/mm3 (0.84-5.20); LYMPHOCYTES PERCENT AUTO 19 % (21-46); MONOCYTES ABSOLUTE AUTO 0.57 K/mm3 (0.16-1.47); MONOCYTES PERCENT AUTO 9 % (4-13); Mean Corpuscular HGB 25.7 pg (26.0-34.0); Mean Corpuscular HGB Conc 30.2 g/dL (31.5-36.5); Mean Corpuscular Volume 85 fL (80-100); Mean Platelet Volume 10.3 fL (9.1-12.4); NEUTROPHILS ABSOLUTE AUTO 4.63 K/mm3 (1.96-9.15); NEUTROPHILS PERCENT AUTO 71 % (41-73); Platelet Count 233 K/mm3 (150-400); Red Blood Cell Count 4.28 M/mm3 (3.80-5.20); White Blood Cell Count 6.51 K/mm3 (4.00-11.30)
--- NOTE | 2020-02-10 05:59 | NUR ---
SHIFT SUMMARY NO ACUTE CHANGES THIS SHIFT. VITAL SIGNS HAVE REMAINED STABLE. PT ON 2L O2 NC. PT UP TO BSC TO VOID THIS SHIFT. PT CONTINUES TO HAVE WET COUGH. NO FAMILY AT BEDSIDE. WILL CONTINUE TO MONITOR AND REPORT OFF TO ONCOMING RN.
[2020-02-10 06:01] LABS: Albumin, Blood 2.1 g/dL (3.4-5.0); Anion Gap 4 mmol/L (6-16); Blood Urea Nitrogen 11 mg/dL (8-24); Bun/Creatinine Ratio 13.7 (12.0-20.0); CO2, Blood 34 mmol/L (21-32); Calcium, Blood 8.6 mg/dL (8.5-10.1); Chloride, Blood 102 mmol/L (98-108); Glomerular Filtration Rate >60 (60-); Glucose, Blood 95 mg/dL (70-99); Phosphorus, Blood 3.5 mg/dL (2.5-4.9); Potassium, Blood 3.8 mmol/L (3.5-5.5); Sodium, Blood 140 mmol/L (136-145)
--- NOTE | 2020-02-10 07:26 | NUR ---
ASSUMED PATIENT CARE. PATIENT RESTING COMFORTABLY IN BED, NO SIGNS OF ACUTE DISTRESS, WCTM.
--- NOTE | 2020-02-10 18:05 | NUR ---
NO ACUTE EVENTS THIS SHIFT. COVID R/O COMPLETE, PATIENT IS NEGATIVE AND CLEARED FROM PRECAUTIONS. PATIENT ON 2 L O2 NASAL CANNULA, MAINTAINED O2 SATS IN THE 90S. PATIENT CONTINUES TO BE PACED IN THE 100S. BLOOD PRESSURE REMAINED STABLE THIS SHIFT. PLAN IS TO CONTINUE TO TREAT PNA WITH IV ABX.
--- NOTE | 2020-02-10 19:15 | NUR ---
RELINQUISHED PATIENT CARE.
--- NOTE | 2020-02-10 22:10 | NUR ---
ASSUMED CARE OF PT. PT ALERT AND ORIENTED SITTING UP IN BED. PT CURRENTLY ON 2L NC WITH SATS IN THE MID 90'S. PT HAS MOIST PRODUCTIVE COUGH. PT FEBRILE WITH TEMP 99.3. LUNG SOUNDS DIM T/O. PT DENIES PAIN, C/O ANXIETY-MEDICATED PRN. PT TAKEN OUT OF DROPLET PRECAUTIONS COVID-19 TEST NEGATIVE. SEE FULL SHIFT ASSESSMENT.
--- NOTE | 2020-02-11 05:44 | NUR ---
SHIFT SUMMARY NO ACUTE CHANGES OVERNIGHT. PT TMAX 99.3 AT BEGINNING OF SHIFT, AFEBRILE AT THIS TIME. PT'S VSS REMAIN STABLE, 02>95% ON 2LNC. PT CONTINUES TO HAVE UNCHANGED PRODUCTIVE MOIST COUGH. WILL REPORT TO DAYSHIFT NURSE.
--- NOTE | 2020-02-11 11:37 | NUR ---
Advance directive education attempted. Upon receiving an admit referral for advance directive education, I visit patient. Patient is sitting up in bed and drinking coffee. Patient's spouse, Yeison is bedside. Patient and Yeison state that they have no interest in education around this topic and that they already have the advance directive form at home and just need to finish filling it out and bring it in. OT needs to visit with patient so I exit. I will continue to remain available to patient and family.
[2020-02-11] MEDS ORDERED: GUAI600T33 PO (14:36)
[2020-02-11] MEDS ORDERED: AMOCLA875 PO (14:37)
--- NOTE | 2020-02-11 15:13 | NUR ---
PT DISCHARGED TO HOME TODAY, PT TO CONTINUE ORAL ABO AUGMENTIN AT HOME AND TO FOOLOW-UP WITH PCP AND PULMO PT AWARE OF DATE AND TIME OF APPOINTMENTS. PT DISCHARGED MEDICATIONS AND INSTRUCTIONS DISCLOSED WITH THE PT, AT BEDSIDE. PT WAS ACCOMPANIED BY PCT FOR TRANSPORT VIA WHEELCHAIR.
== END 2020-02-11 15:09 | disposition home or self-care (01) | DRG 871 ==
LOC: ER 11:58 → PCU 16:22
PROVIDERS: Family Medicine; Nurse Practitioner; Nurse Practitioner Acute Care; ADMIT Internal Medicine
DX: A41.9 Sepsis, unspecified organism (principal); J96.21 Acute and chronic respiratory failure with hypoxia; J96.22 Acute and chronic respiratory failure with hypercapnia; J12.3 Human metapneumovirus pneumonia; J44.0 Chronic obstructive pulmonary disease with (acute) lower respiratory infection; I50.22 Chronic systolic (congestive) heart failure; R65.20 Severe sepsis without septic shock; I11.0 Hypertensive heart disease with heart failure; I95.9 Hypotension, unspecified; E03.9 Hypothyroidism, unspecified; E78.5 Hyperlipidemia, unspecified; D64.9 Anemia, unspecified; E87.6 Hypokalemia; F41.1 Generalized anxiety disorder; Z95.810 Presence of automatic (implantable) cardiac defibrillator; Z99.81 Dependence on supplemental oxygen; Z87.891 Personal history of nicotine dependence
CPT/HCPCS: 0099U; 36415; 71046; 71250; 80053; 80069; 81003; 82533; 82803; 83605; 83735; 83880; 84145; 85025; 87040; 87070; 87205; 93005; 93010; 94640; 94760; 94762; 96361; 96365; 96366; 96368; 97110; 97162; 97165; 99285-25; A9270-GY; J0456; J0696; J1650; J7030; J7050; U0001

== ENCOUNTER → 2023-12-29 | Outpatient (CLI) | payer OTHER ==
[~2023-12-29] MED LIST changes: +AMOCLA875 PO; +Aspir 8181 MG PO; +BUDE6HFA INH; +Budesonide0.5 MG/2 M NEB; +CARV3.125 PO; +CITA20 PO; +CLON.5 PO; +CORLANOR5 MG PO; +Duoneb 2.5-0.5 M3 ML NEB; +FURO20 PO; +GUAI600T33 PO; +INCRUSE ELLI62.5 MCG INH; +LEVSOD50 PO; +ROSU10TA PO; +SPIRIVA RESPIMAT4 GM INH
[2023-12-29 17:10] LABS: BASOPHILS ABSOLUTE AUTO 0.04 K/mm3 (0.00-0.23); BASOPHILS PERCENT AUTO 0 % (0-2); EOSINOPHILS ABSOLUTE AUTO 0.15 K/mm3 (0.00-0.68); EOSINOPHILS PERCENT AUTO 2 % (0-6); Hematocrit 42.4 % (33.0-51.0); IMMATURE GRAN ABSOLUTE AUTO 0.06 K/mm3 (0.00-0.10); IMMATURE GRAN PERCENT AUTO 1 % (0-1); LYMPHOCYTES ABSOLUTE AUTO 1.23 K/mm3 (0.84-5.20); LYMPHOCYTES PERCENT AUTO 13 % (21-46); MONOCYTES PERCENT AUTO 9 % (4-13); Mean Corpuscular HGB 26.1 pg (26.0-34.0); Mean Corpuscular HGB Conc 30.7 g/dL (31.5-36.5); Mean Corpuscular Volume 85 fL (80-100); Mean Platelet Volume 10.8 fL (9.1-12.4); NEUTROPHILS ABSOLUTE AUTO 7.08 K/mm3 (1.96-9.15); NEUTROPHILS PERCENT AUTO 76 % (41-73); Platelet Count 262 K/mm3 (150-400); RDW Coefficient Variation 15.1 % (11.7-14.2); RDW Standard Deviation 46.5 fL (35.1-46.3); Red Blood Cell Count 4.98 M/mm3 (3.80-5.20); White Blood Cell Count 9.36 K/mm3 (4.00-11.30)
[2023-12-31 09:16] LABS: A/G RATIO 1.6 (1.2-2.2); ALKALINE PHOSPHATASE, S 89 IU/L (44-121); ALT (SGPT) 26 IU/L (0-32); AST (SGOT) 27 IU/L (0-40); BILIRUBIN, TOTAL 0.4 mg/dL (0.0-1.2); BUN 12 mg/dL (8-27); BUN/CREATININE RATIO 17 (12-28); CALCIUM, SERUM 9.3 mg/dL (8.7-10.3); CARBON DIOXIDE, TOTAL 26 mmol/L (20-29); CHLORIDE, SERUM 97 mmol/L (96-106); CHOLESTEROL, TOTAL 168 mg/dL (100-199); FERRITIN 184 ng/mL (15-150); GLOBULIN, TOTAL 2.3 g/dL (1.5-4.5); GLUCOSE, SERUM 94 mg/dL (70-99); HDL CHOLESTEROL 59 mg/dL (>39); IRON BIND.CAP.(TIBC) 298 ug/dL (250-450); IRON SATURATION 33 % (15-55); IRON, SERUM 97 ug/dL (27-139); LDL CHOLESTEROL CALC 85 mg/dL (0-99); POTASSIUM, SERUM 4.8 mmol/L (3.5-5.2); SODIUM, SERUM 137 mmol/L (134-144); TRIGLYCERIDES 137 mg/dL (0-149); UIBC 201 ug/dL (118-369); VLDL CHOLESTEROL CAL 24 mg/dL (5-40)
[2024-01-01 05:09] LABS: FOLATE (FOLIC ACID), SERUM 15.4 ng/mL (>3.0)
== END | disposition home or self-care (01) ==
LOC: LAB SHORT 15:09 → LAB 15:09
PROVIDERS: Family Medicine
DX: I42.0 Dilated cardiomyopathy (principal); R53.83 Other fatigue; Z79.899 Other long term (current) drug therapy
CPT/HCPCS: 80053; 80061; 82306; 82607; 82728; 82746; 83036; 83540; 83550; 84443; 85025

== ENCOUNTER 2024-03-20 17:53 | Emergency (ER) | payer OTHER ==
[~2024-03-20] VITALS: Ht 162.6 cm; Wt 61.2 kg
[2024-03-20 17:58] VITALS: BP 133/77
[2024-03-20 18:32] LABS: BASOPHILS ABSOLUTE AUTO 0.03 K/mm3 (0.00-0.23); BASOPHILS PERCENT AUTO 0 % (0-2); EOSINOPHILS ABSOLUTE AUTO 0.14 K/mm3 (0.00-0.68); EOSINOPHILS PERCENT AUTO 1 % (0-6); Hematocrit 41.6 % (33.0-51.0); Hemoglobin 12.7 g/dL (11.5-16.0); IMMATURE GRAN ABSOLUTE AUTO 0.05 K/mm3 (0.00-0.10); IMMATURE GRAN PERCENT AUTO 1 % (0-1); LYMPHOCYTES ABSOLUTE AUTO 1.25 K/mm3 (0.84-5.20); LYMPHOCYTES PERCENT AUTO 12 % (21-46); MONOCYTES ABSOLUTE AUTO 0.82 K/mm3 (0.16-1.47); MONOCYTES PERCENT AUTO 8 % (4-13); Mean Corpuscular HGB 26.4 pg (26.0-34.0); Mean Corpuscular HGB Conc 30.5 g/dL (31.5-36.5); Mean Corpuscular Volume 87 fL (80-100); Mean Platelet Volume 10.2 fL (9.1-12.4); NEUTROPHILS ABSOLUTE AUTO 7.99 K/mm3 (1.96-9.15); NEUTROPHILS PERCENT AUTO 78 % (41-73); Platelet Count 294 K/mm3 (150-400); RDW Coefficient Variation 13.9 % (11.7-14.2); RDW Standard Deviation 44.5 fL (35.1-46.3); Red Blood Cell Count 4.81 M/mm3 (3.80-5.20); White Blood Cell Count 10.28 K/mm3 (4.00-11.30)
[2024-03-20 18:57] LABS: International Normalized Ratio >10.00; Prothrombin Time Results >90.0 Sec (9.7-11.5)
[2024-03-20] MEDS ORDERED: Phytonadione 5 MG Tab PO ONE (19:25)
== END 2024-03-20 20:02 | disposition home or self-care (01) ==
LOC: ER 17:53
PROVIDERS: Nurse Practitioner
DX: R79.1 Abnormal coagulation profile (principal); I48.91 Unspecified atrial fibrillation; I11.0 Hypertensive heart disease with heart failure; I50.22 Chronic systolic (congestive) heart failure; J44.9 Chronic obstructive pulmonary disease, unspecified; E03.9 Hypothyroidism, unspecified; Z95.810 Presence of automatic (implantable) cardiac defibrillator; Z87.891 Personal history of nicotine dependence; Z79.01 Long term (current) use of anticoagulants; Z79.890 Hormone replacement therapy; Z79.51 Long term (current) use of inhaled steroids; Z79.899 Other long term (current) drug therapy; Z51.81 Encounter for therapeutic drug level monitoring
CPT/HCPCS: 36416; 85025; 85610; 85730; 99283; A9270

== ENCOUNTER → 2024-06-01 | Outpatient (CLI) | payer OTHER | LOC: LAB SHORT 15:03 → LAB 15:03 | DX: N39.0 Urinary tract infection, site not specified (principal) | CPT/HCPCS: 87077; 87086; 87186 ==